=== PATIENT | female | born 2000 | race Caucasian/White ===

== ENCOUNTER 2025-04-10 22:22 | Emergency (ER) | payer OTHER ==
[2025-04-10 22:36] LABS: APPEARANCE,URINE CLEAR (CLEAR); GLUCOSE,URINE NEGATIVE (NEGATIVE); OCCULT BLOOD,URINE MODERATE (NEGATIVE)
[2025-04-10] MEDS: Take Home: Nitrofurantoin Monohydrate/Macrocrystalline 100 MG, 6 Cap Pack PO ONE (22:48)
[2025-04-10] MEDS: Take Home: Phenazopyridine 95 MG Tab, 4 Tab Pack PO ONE (23:02)
== END 2025-04-10 23:04 | disposition home or self-care (01) ==
LOC: LL.ED 22:22
DX: N30.01 Acute cystitis with hematuria (principal)
CPT/HCPCS: 81001; 99283; A9270-GY